=== PATIENT | male | born 1965 | race Caucasian/White ===

== ENCOUNTER 2018-11-27 06:16 | Day surgery (SDC) | payer OTHER ==
[2018-11-26 13:43] VITALS: BMI 33.6
[2018-11-27] MEDS ORDERED: PROPOFOL 20 ML ONE ×6 (07:05→10:07)
[2018-11-27] MEDS ORDERED: KETOROLAC TROMETHAMINE 30 MG/1 ML VIAL ONE (07:05)
[2018-11-27] MEDS ORDERED: ONDANSETRON 4 MG/2 ML VIAL ONE (07:05)
[2018-11-27] MEDS ORDERED: ceFAZolin SODIUM 1 GM VIAL ONE (07:05)
[2018-11-27] MEDS ORDERED: DEXAMETHASONE SOD PHOSPHATE 4 MG/1 ML VIAL ONE (07:05)
[2018-11-27] MEDS ORDERED: MIDAZOLAM HCL 2 MG/2 ML SINGLE DOSE VIAL ONE (07:16)
[2018-11-27] MEDS ORDERED: DEXAMETHASONE SOD PHOSPHATE/PF 10 MG/ML SDV ONE (07:16)
[2018-11-27] MEDS ORDERED: ROPIVACAINE HCL 0.5% 30ML VIAL ONE (07:16)
[2018-11-27] MEDS ORDERED: GUM MASTIC/STORAX/MSAL/ALCOHOL 1 DRP DROPSBTL MC ONE (08:24)
[2018-11-27 13:06] VITALS: TEMP 98.1
[2018-11-27 13:12] VITALS: BP 165/97; PULSE 63
--- NOTE | 2018-11-28 08:17 | HP ---
DATE OF ADMISSION: 11/27/2018 PREOPERATIVE DIAGNOSIS: Left displaced distal radius fracture. POSTOPERATIVE DIAGNOSIS: Left displaced distal radius fracture. OPERATIVE PROCEDURES: 1. Open reduction and internal fixation of left distal radius fracture. 2. Left brachioradialis tenotomy. SURGEON: Arturo Hector MD RN TRAVEL: ZOFIA Aguilar ANESTHESIA: Regional. COMPLICATIONS: None. ESTIMATED BLOOD LOSS: Minimal. INDICATIONS FOR PROCEDURE: The patient is a 52-year-old male with the above findings, indicated for operative treatment. The risks, benefits and alternatives were discussed with the patient at length and proper informed consent was obtained. DESCRIPTION OF PROCEDURE: After proper identification of the patient and correct operative site, the patient was brought to the operating room and placed supine on the table, with all bony prominences well-padded. Regional anesthesia was given. Intravenous antibiotics were given. A time-out procedure was performed. The left upper extremity was prepped and draped in the usual sterile fashion. A well-padded tourniquet was placed after sterile prep. Esmarch bandage was used to exsanguinate the left upper extremity, and tourniquet was inflated to 250 mmHg. A longitudinal incision was made over the flexor carpi radialis tendon. The incision was made sharply through the skin, with blunt and sharp dissection through the subcutaneous tissues. The flexor carpi radialis tendon along with the contents of the carpal canal were bluntly and gently retracted in an ulnarward direction for the remainder of the procedure. The pronator quadratus was divided longitudinally and the distal radius was identified. A high amount of callus formation was present and this was debrided. The fracture was freed. However, due to impaction and the pull of the brachioradialis, reduction was not possible at this time. Therefore, a subperiosteal elevation and release of the brachioradialis tendon was performed. This allowed the distal fragment to mobilize. With minimal further dissection, we were able to achieve a neutral reduction. Further reduction would have required significant extensive dissection, which I did not believe the benefits outweighed the risks at this time. Therefore, the reduction was performed and held with an [employer] plate with distal locking screws and proximal bicortical screws. This provided secure stable fixation of the fracture with satisfactory alignment. Radiographs were taken in multiple planes, showing a secure stable fixation, with proper placement of all hardware and sizing of all hardware. The wound was irrigated and repaired with 4-0 Vicryl and 4-0 Monocryl sutures. Steri-Strips and sterile dressing were placed. The patient was reversed from anesthesia and brought to the recovery room in stable condition. Rani Swift, the healthcare administrative assistant, was integral throughout this procedure, and the procedure could not have been performed without a skilled operative healthcare administrative assistant. ARTURO HECTOR M.D. [id number]
== END 2018-11-27 13:17 | disposition home or self-care (01) ==
LOC: FASU 06:16
PROVIDERS: ATTEND Orthopaedic Surgery Hand Surgery
PROC: 0LN60ZZ Release Left Lower Arm and Wrist Tendon, Open Approach (ICD-10-PCS; 2018-11-27)
PROC: 0PSJ04Z Reposition Left Radius with Internal Fixation Device, Open Approach (ICD-10-PCS; principal; 2018-11-27 08:48)
DX: S52.532A Colles' fracture of left radius, initial encounter for closed fracture (principal); X58.XXXA Exposure to other specified factors, initial encounter; Y93.9 Activity, unspecified; Y92.9 Unspecified place or not applicable
CPT/HCPCS: 25290; 25609; C1713; 73110-TC-LT-FY; 94760